=== PATIENT | female | born 1945 | race Caucasian/White ===

== ENCOUNTER 2020-02-13 10:29 | Outpatient (CLI) | payer MEDICARE, OTHER, SELFPAY ==
--- NOTE | ~2020-02-13 | MM_ITS ---
EXAMINATION: MM screening woody BI w dexter HISTORY: Screening TECHNIQUE: Craniocaudal and mediolateral oblique 3-D tomosynthesis images were obtained and synthetic 2-D images were generated. CAD analysis was submitted and interpreted. COMPARISON: Comparison to multiple prior studies sequentially, with oldest reviewed study dated 08/2010. BREAST PARENCHYMAL COMPOSITION: There are scattered areas of fibroglandular density. FINDINGS: There is no evidence of suspicious mass, calcification, or architectural distortion to sugg est malignancy in either breast. There has been no suspicious interval change. IMPRESSION: 1. No mammographic evidence of malignancy. 2. Recommend routine screening mammography in one year. BI-RADS Category 1: Negative Reviewed, dictated and finalized at location A.
--- NOTE | ~2020-02-13 | DEXA_ITS ---
BMD(1) Young-Adult(2) Age-Matched(3) Region (g/cm2) T-score Z-score WHO Classification L1 0.900 -2.0 0.2 Osteopenia L2 0.968 -2.0 0.1 Osteopenia L3 1.057 -1.3 0.9 Osteopenia L4 0.907 -2.4 -0.3 Osteopenia L1-L4 0.956 -1.9 0.2 Osteopenia Trend: L1-L4 Change vs Change vs Measured Age BMD(1) Baseline Previous Date (years) (g/cm2) (%) (%) 02/13/2020 [age] 0.956 -6.5* -6.5* [birth year]2009 [age] 1.023 baseline - * - Indicates significant change based on 95% confidence interval. 1 - Statistically 68% of repeat scans fall within 1SD (+- 0.010 g/cm2 for AP Spine L1-L4) 2 - [facility] (Combined NHANES (ages 20-30) / [place] (ages 20-40)) AP Spine Reference Population (v112) 3 - Matched for Age, Weight (females 25-100 kg), Ethnic 11 - World Health Organization - Definition of Osteoporosis and Osteopenia for Women: Normal = T-score at or above -1.0 SD; Osteopenia = T-score between -1.0 and -2.5 SD; Osteoporosis = T-score at or below -2.5 SD; (WHO definitions only apply when a young healthy Women reference database is used to determine T-scores.) Printed: 02/13/2020 11:40:19 AM (13.60)76:3.00:50.00:12.0 0.00:7.92 0.60x1.05 16.7:%Fat=18.0% 0.00:0.00 0.00:0.00 Verify bone is centered and there is sufficient tissue next to bone. Filename: 38rweqafq.dfx Scan Mode: Standard;OneScan 37.0 [employer]media [id number] BMD(1) Young-Adult(2) Age-Matched(3) Region (g/cm2) T-score Z-score WHO Classification Neck 0.587 -3.2 -1.0 Osteoporosis Total 0.660 -2.8 -0.7 Osteoporosis Hip Bogard Length Comparison (mm) (Left = 96.1 mm) (Mean = 104.0 mm) Trend: Total Change vs Change vs Measured Age BMD(1) Baseline Previous Date (years) (g/cm2) (%) (%) 02/13/2020 74.7 0.660 -22.4* -22.4* [birth year]/2009 [age] 0.851 baseline - * - Indicates significant change based on 95% confidence interval. 1 - Statistically 68% of repeat scans fall within 1SD (+- 0.012 g/cm2 for Left Femur Total) 2 - [place] (Combined NHANES (ages 20-30) / [place] (ages 20-40)) Femur Reference Population (v112) 3 - Matched for Age, Weight (females 25-100 kg), Ethnic 11 - World Health Organization - Definition of Osteoporosis and Osteopenia for Women: Normal = T-score at or above -1.0 SD; Osteopenia = T-score between -1.0 and -2.5 SD; Osteoporosis = T-score at or below -2.5 SD; (WHO definitions only apply when a young healthy Women reference database is used to determine T-scores.) Printed: 02/13/2020 11:40:19 AM (13.60)76:3.00:50.00:12.0 0.00:10.26 0.60x1.05 14.9:%Fat=38.8% 0.00:0.00 0.00:0.00 Neck Angle (deg)= 63 Filename: 38rweqafq.dfx Scan Mode: Standard 37.0 [employer]5media [id number] 17 - The 10-year probability of fracture may be lower than reported if the patient has received treatment. 18 - Major Osteoporotic Fracture: Clinical Spine, Forearm, Hip or Shoulder Printed: 02/13/2020 11:40:21 AM (13.60)76:3.00:50.00:12.0 0.00:10.26 0.60x1.05 14.9:%Fat=38.8% 0.00:0.00 0.00:0.00 Neck Angle (deg)= 63 Filename: [id number].dfx Scan Mode: Standard 37.0 ?Gy FRAX v3.1 [employer] [id number] Dear Ashleigh Vásquez MD, Your patient Violet Olivas completed a BMD test on 02/13/2020 using the [employer] DXA System (analysis version: 13.60) manufactured by [employer]. The following summarizes the results of our evaluation. PATIENT BIOGRAPHICAL: Name: Violet Olivas
[2020-02-13 10:47] LABS: Basophils Absolute Auto 0.03 K/mm3 (0.00-0.10); Basophils Percent Auto 0.5 % (0.0-1.0); Eosinophils Absolute Auto 0.11 K/mm3 (0.02-0.50); Eosinophils Percent Auto 1.7 % (1.0-6.0); Immature Granulocyte Absolute 0.02 K/mm3 (0.00-0.00); Immature Granulocyte Percent A 0.3 % (0.0-0.0); Lymphocytes Absolute Auto 1.47 K/mm3 (1.10-4.50); Lymphocytes Percent Auto 22.3 % (18.0-42.0); Mean Corpuscular HGB Conc 31.6 g/dL (32.0-36.0); Mean Corpuscular Volume 104.4 fL (78.0-102.0); Mean Platelet Volume 8.6 fl (9.2-11.8); Monocytes Absolute Auto 0.31 K/mm3 (0.10-0.90); Monocytes Percent Auto 4.7 % (2.0-11.0); Neutrophils Absolute Auto 4.7 K/mm3 (1.7-7.2); Neutrophils Percent Auto 70.5 % (50.0-70.0); Platelet Count Result 221 K/mm3 (150-420); Red Blood Count 3.64 M/mm3 (4.20-5.40); Red Cell Distribution Width 12.5 % (11.6-14.4); White Blood Count 6.6 K/mm3 (4.8-10.8)
[2020-02-13 10:52] LABS: Add Urine Microscopic? YES; Appearance Urine Clear (Clear); Bilirubin Urine Negative (Negative); Blood Urine Negative (Negative); Color Urine Yellow (Yellow); Glucose Urine UA Negative (Negative); Ketones Urine Negative (Negative); Leukocyte Esterase Ur Negative (Negative); Nitrate Urine Negative (Negative); Protein Urine Trace (Negative); Specific Grav Ur 1.025 (1.010-1.020); Urobilinogen Urine 0.2 mg/dL (0.2-1.0)
[2020-02-13 10:58] LABS: Bacteria Urine 1+ /hpf; RBC Urine 0-2 /hpf (0-2); Squamous Epithelial Cell Urine Few /hpf (Few); WBC Urine 0-3 /hpf (0-3)
[2020-02-13 10:59] LABS: Mucus Urine Few /lpf
[2020-02-13 12:13] LABS: Alanine Aminotransferase 18 U/L (14-59); Albumin Level 3.8 g/dL (3.4-5.0); Alkaline Phosphatase 66 U/L (46-116); Anion Gap 7 mmol/L (8-16); Aspartate Amino Transferase 42 U/L (15-37); Bilirubin,Total 0.4 mg/dL (0.00-1.00); Blood Urea Nitrogen 16 mg/dL (7-18); Calcium 9.3 mg/dL (8.5-10.1); Carbon Dioxide 31 mmol/L (21-32); Chloride 100 mmol/L (98-108); Estimated Glomerular Filt Rate 48; Glucose 98 mg/dL (70-99); Osmolality Calculated 287 mOsm/kg (285-295); Potassium 4.3 mmol/L (3.5-5.1); Sodium 138 mmol/L (136-145); Total Protein 7.3 g/dL (6.4-8.2)
[2020-02-13 12:14] LABS: Vitamin B12 > 2000 pg/mL (193-986)
[2020-02-15 11:14] LABS: Vitamin D 25 Hydroxy 33 ng/mL (30-100)
== END 2020-02-13 10:30 | disposition home or self-care (01) ==
PROVIDERS: PCP Internal Medicine; Referring Provider Internal Medicine; Visit Provider Internal Medicine
DX: Z12.31 Encounter for screening mammogram for malignant neoplasm of breast (principal); M81.0 Age-related osteoporosis without current pathological fracture; E53.8 Deficiency of other specified B group vitamins; I10 Essential (primary) hypertension; M06.9 Rheumatoid arthritis, unspecified
CPT/HCPCS: 36415; 77063; 77067; 77080; 80053; 81001; 82306; 82607; 85025

== ENCOUNTER 2020-06-13 15:04 | Outpatient (CLI) | payer MEDICARE, OTHER, SELFPAY ==
--- NOTE | ~2020-06-13 | XR_ITS ---
XR chest 2V DATE: 06/13/2020 15:26 INDICATION: Abnormal chest radiograph follow up, possible nodule TECHNIQUE: 2 views COMPARISON: None FINDINGS: Heart size is within normal range. There is aortic calcification and unfolding. No hilar or mediastinal enlargement. The lungs are hyperinflated but clear of infiltrate or consolidation. There is old pulmonary granulo matous disease. There is diffuse osteopenia. There is moderately severe compression fracture deformity of approximat marisa T12 Surgical clips are noted overlying the right upper quadrant. IMPRESSION: Bilateral hyperinflation; no active pulmonary disease Reviewed, dictated and finalized at location A. TEGIC MARKETING MANAGER
[2020-06-13 15:27] LABS: Basophils Absolute Auto 0.03 K/mm3 (0.00-0.10); Basophils Percent Auto 0.5 % (0.0-1.0); Eosinophils Absolute Auto 0.02 K/mm3 (0.02-0.50); Eosinophils Percent Auto 0.3 % (1.0-6.0); Hematocrit 37.2 % (35.0-42.0); Hemoglobin 11.5 g/dL (11.7-13.8); Immature Granulocyte Absolute 0.02 K/mm3 (0.00-0.00); Immature Granulocyte Percent A 0.3 % (0.0-0.0); Lymphocytes Absolute Auto 1.35 K/mm3 (1.10-4.50); Lymphocytes Percent Auto 21.2 % (18.0-42.0); Mean Corpuscular HGB Conc 30.9 g/dL (32.0-36.0); Mean Corpuscular Hemoglobin 32.2 pg (27.0-31.0); Mean Corpuscular Volume 104.2 fL (78.0-102.0); Mean Platelet Volume 8.4 fl (9.2-11.8); Monocytes Absolute Auto 0.17 K/mm3 (0.10-0.90); Monocytes Percent Auto 2.7 % (2.0-11.0); Neutrophils Absolute Auto 4.8 K/mm3 (1.7-7.2); Platelet Count Result 291 K/mm3 (150-420); Red Blood Count 3.57 M/mm3 (4.20-5.40); Red Cell Distribution Width 12.4 % (11.6-14.4); White Blood Count 6.4 K/mm3 (4.8-10.8)
[2020-06-13 15:54] LABS: Alanine Aminotransferase 17 U/L (14-59); Albumin Level 3.8 g/dL (3.4-5.0); Alkaline Phosphatase 77 U/L (46-116); Anion Gap 10 mmol/L (8-16); Aspartate Amino Transferase 36 U/L (15-37); Bilirubin,Total 0.4 mg/dL (0.00-1.00); Blood Urea Nitrogen 28 mg/dL (7-18); Calcium 9.4 mg/dL (8.5-10.1); Carbon Dioxide 28 mmol/L (21-32); Chloride 100 mmol/L (98-108); Estimated Glomerular Filt Rate 34; Glucose 94 mg/dL (70-99); Osmolality Calculated 291 mOsm/kg (285-295); Potassium 4.5 mmol/L (3.5-5.1); Sodium 138 mmol/L (136-145); Total Protein 7.4 g/dL (6.4-8.2)
== END 2020-06-13 15:05 | disposition home or self-care (01) ==
LOC: CHSLAB 15:07
PROVIDERS: PCP Internal Medicine; Visit Provider Internal Medicine
DX: M06.9 Rheumatoid arthritis, unspecified (principal); R91.8 Other nonspecific abnormal finding of lung field
CPT/HCPCS: 36415; 71046; 80053; 85025

== ENCOUNTER 2020-06-26 11:13 | Outpatient (CLI) | payer MEDICARE, OTHER, SELFPAY ==
--- NOTE | ~2020-06-26 | US_ITS ---
EXAMINATION: US venous doppler LE EXAM DATE: 06/26/2020 11:43 INDICATION: B/L Calf Swelling . TECHNIQUE: Multiple grayscale, color flow and Doppler images of the lower extremity deep venous syste ms bilaterally were obtained and reviewed. There is no prior study for comparison. FINDINGS: Right side: The right common femoral, femoral and profunda veins demonstrate normal color flow, respi ratory variation, augmentation and compressibility. Compressibility, color flow confirmed within the right popliteal, posterior tibial, peroneal, and greater saphenous veins. Left side: The left common femoral, femoral and profunda veins demonstrate normal color flow, respira tory variation, augmentation and compressibility. Compressibility, color flow confirmed within the l eft popliteal, posterior tibial, peroneal, and greater saphenous veins. IMPRESSION: 1. No lower extremity deep venous thrombosis bilaterally. Reviewed, dictated and finalized at location B. MACHINE OPERATOR
== END 2020-06-26 11:14 | disposition home or self-care (01) ==
LOC: CHSIMG 11:15
PROVIDERS: PCP Internal Medicine; Visit Provider Internal Medicine
DX: M79.89 Other specified soft tissue disorders (principal)
CPT/HCPCS: 93970

== ENCOUNTER 2020-09-28 07:50 | Emergency (ER) | payer MEDICARE, OTHER, SELFPAY ==
[2020-09-28] VITALS (16 sets, daily range): BP systolic 90–137; BP diastolic 52–89; PULSE 82–157; RESP 18–20; TEMP 36.1–37; O2SAT 94–100
--- NOTE | ~2020-09-28 | XR_ITS ---
EXAMINATION: XR abdomen NG/feed tube insert INDICATION: Nasogastric tube placement TECHNIQUE: Portable AP KUB-NG at 0836 hours COMPARISON: None available FINDINGS: The nasogastric tube is followed as far as the stomach. Its tip is beyond the inferior christa in of the radiograph. The visualized lung bases are clear. Surgical clips in the right upper quadrant are likely from prior cholecystectomy. IMPRESSION: 1. Nasogastric tube in the stomach. Reviewed, dictated and finalized at location A.
--- NOTE | ~2020-09-28 | CT_ITS ---
EXAMINATION: CT abdomen pelvis w con INDICATION: Hematemesis TECHNIQUE: Computed tomographic images of the abdomen and pelvis were obtained after the administrati on of 100 cc of Omnipaque 350 intravenous contrast. The dose-length product (DLP) was 395.06 mGy-cm. Automated exposure control and iterative reconstruction technique were employed. COMPARISON: None available FINDINGS: There are small pleural effusions, right greater than left. Cardiomegaly is noted. There is calcified coronary artery atherosclerosis. The nasogastric tube is in the stomach. Punctate calcific ations in an otherwise normal spleen likely represent healed granulomatous disease. The liver, pancre as, and right adrenal gland are normal. There is a 3.2 x 1.9 cm mass abutting the left adrenal gland. There is mild atrophy of the kidneys which contain multiple cysts. The largest measures 4 cm on the right. There is calcified atherosclerosis of the aorta and many of the other arteries. No pathologica lly enlarged abdominal or pelvic lymph nodes are identified. There is no free intraperitoneal gas or evidence of bowel obstruction. Changes of right total hip arthroplasty are noted. There is an age-ind eterminate burst fracture of L1. IMPRESSION: 1. No CT correlate for the patient's symptoms. 2. Small pleural effusions, right greater than left. 3. Mass abutting the left adrenal gland which could reflect adrenal mass versus diverticulum of the s tomach. Follow-up by MRI without and with contrast is recommended. 4. Cardiomegaly. Reviewed, dictated and finalized at location A. IMPRESSION: 1. No CT correlate for the patient's symptoms. 2. Small pleural effusions, right greater than left. 3. Mass abutting the left adrenal gland which could reflect adrenal mass versus diverticulum of the stomach. Follow-up by MRI without and with contrast is rec ommended. 4. Cardiomegaly.
[2020-09-28] MEDS: ONDANSETRON INJ 4 MG/2 ML VIAL IV PUSH (08:05)
--- NOTE | 2020-09-28 08:10 | ECG_ITS ---
Measurements Intervals [place] Rate: 136 P: [place]: 0 QRS: 4 QRSD: 77 T: 145 QT: 264 QTc: 398 Interpretive Statements ATRIAL FIBRILLATION WITH RAPID VENTRICULAR RESPONSE VENTRICULAR PREMATURE COMPLEX NONSPECIFIC T-WAVE ABNORMALITY- DIFFUSE LEADS ABNORMAL ECG Electronically Signed On 09-29-2020 16:35:15 CDT by Tal Hein D.O.
[2020-09-28] MEDS: SODIUM CHLORIDE 0.9% IV 1,000 ML 999 ML IV CONT (08:30)
[2020-09-28] MEDS: SODIUM CHLORIDE 0.9% IV 100 ML 10 ML (08:35)
[2020-09-28] MEDS: PANTOPRAZOLE SODIUM IV 40 MG VIAL 80 MG (08:35)
[2020-09-28 08:40] LABS: Hemoglobin 7.5 g/dL (11.7-13.8); Immature Granulocyte Absolute 0.02 K/mm3 (0.00-0.00); Immature Granulocyte Percent A 0.5 % (0.0-0.0); Immature Platelet Fraction Pct 7.1 % (1.0-7.0); Lymphocytes Absolute Auto 0.43 K/mm3 (1.10-4.50); Lymphocytes Percent Auto 10.4 % (18.0-42.0); Mean Corpuscular HGB Conc 32.6 g/dL (32.0-36.0); Mean Corpuscular Hemoglobin 36.2 pg (27.0-31.0); Mean Corpuscular Volume 111.1 fL (78.0-102.0); Monocytes Absolute Auto 0.03 K/mm3 (0.10-0.90); Monocytes Percent Auto 0.7 % (2.0-11.0); Neutrophils Absolute Auto 3.6 K/mm3 (1.7-7.2); Neutrophils Percent Auto 88.4 % (50.0-70.0); Nucleated Red Blood Cells Absolute Auto 0.07 K/mm3 (0.00-0.00); Nucleated Red Blood Cells Perc 1.7 % (0-0.0); Red Blood Count 2.07 M/mm3 (4.20-5.40); Red Cell Distribution Width 18.3 % (11.6-14.4); White Blood Count 4.1 K/mm3 (4.8-10.8)
[2020-09-28 08:44] LABS: Platelet Count Result 12 K/mm3 (150-420)
[2020-09-28 08:51] LABS: INR 1.2; Partial Thromboplastin Time 25.1 SEC (23.90-30.70); Prothrombin Time 12.7 Seconds (9.50-12.10)
[2020-09-28 08:54] LABS: BNP 741 pg/mL (0-100)
[2020-09-28 08:56] LABS: Lactic Acid Reflex 1.6 mmol/L (0.4-2.0)
[2020-09-28 09:00] LABS: SARS-CoV-2 Ag Negative (Negative)
[2020-09-28 09:03] LABS: Alanine Aminotransferase 59 U/L (14-59); Alkaline Phosphatase 69 U/L (46-116); Anion Gap 8 mmol/L (8-16); Aspartate Amino Transferase 76 U/L (15-37); Bilirubin,Total 1.1 mg/dL (0.00-1.00); Blood Urea Nitrogen 42 mg/dL (7-18); Calcium 8.8 mg/dL (8.5-10.1); Carbon Dioxide 30 mmol/L (21-32); Chloride 100 mmol/L (98-108); Estimated Glomerular Filt Rate 47; Glucose 186 mg/dL (70-99); Lipase 125 U/L (73-393); Magnesium 1.5 mg/dL (1.8-2.4); Osmolality Calculated 301 mOsm/kg (285-295); Potassium 4.3 mmol/L (3.5-5.1); Sodium 138 mmol/L (136-145); Total Protein 6.3 g/dL (6.4-8.2)
[2020-09-28 09:04] LABS: Ammonia < 10 umol/L (11-32)
[2020-09-28 09:20] LABS: Troponin I 93.1 ng/L (0.00-60.4)
--- NOTE | 2020-09-28 09:34 | ED.GIBLEED ---
HPI - GI Bleed General Chief complaint: GI Bleed Stated complaint: decreased appetite, vomiting, dizziness Source: patient, family and EMS Mode of arrival: EMS Limitations: clinical condition History of Present Illness HPI Narrative: this is a 75-year-old female that presented to the emergency department via EMS after she had nausea and vomiting off and on the last month but overnight had developed coffee-ground emesis, patient brought by EMS and the patient had nausea and vomiting with coffee-ground emesis, the patient had a rapid heart rate and no known history of atrial fibrillation but currently shows that she is in atrial fibrillation with rapid ventricular response initially her her heart rate was around 157, the patient denies any chest pain with no shortness of breath does have some mild abdominal discomfort with nausea vomiting with no dysuria no flank pain no chest tightness no shortness of breath no cough or congestion. The patient has a history of rheumatoid arthritis, hypertension and depression last saw her doctor approximately a month ago. Denies any [id number] medications, no NSAID use no alcohol use. Patient a blood pressure initially 137/76 is afebrile with a temperature of 97.2 and O2 sats at 96% on room air. After calling [facility] they declined to take the patient because of low platelet count, talk to [facility] and talk to client services specialist that would accept, talk to hospitalist and talked to the traffic rate computer and they are tight on beds at this time but will transfuse 2units of platelets prior to transfer. complaint: coffee ground emesis Onset (ago): hour(s) Pain Consistency: constant Severity: severe Relieving factors: vomiting Exacerbating factors: vomiting Associated symptoms: abdominal pain, nausea and vomiting Related Data Home Medications Medication Instructions Recorded Confirmed folic acid 1 mg PO DAILY 09/28/20 09/28/20 losartan 100 mg PO DAILY 09/28/20 09/28/20 sertraline 100 mg PO DAILY 09/28/20 09/28/20 sulfamethoxazole-trimethoprim 1 tablet PO DAILY 09/28/20 09/28/20 Allergies Allergy/AdvReac Type Severity Reaction Status Date / Time Penicillins Allergy Unknown Verified 09/28/20 09:26 Review of Systems Review of Systems: All systems reviewed & are unremarkable except as noted in HPI and below PMFSH Past Medical History Medical History (Updated 09/28/20 @ 14:25 by Lyle Luis MD) Depression HTN (hypertension) Rheumatoid arthritis Course Course Emergency Course: reassessment of patient placed an NG tube and x-ray showed the NG tube placed in the stomach, and did have about 150 to 200 cc of dark coffee-ground emesis, patient had blood work that showed that her platelet count was 12 with an H&H of 7.5 in , the patient was typed and screened and will start transfusion with 1unit of packed red blood cells. The patient on EKG shows that there is a new onset atrial fibrillation with a rapid ventricular response with a rate initially of 157 currently it is 136, patient was started on Protonix drip, NG tube placed, patient given Cardizem bolus of 10 mg and will start a Cardizem drip. Patient appears comfortable no acute distress currently vital signs are stable heart rate currently prior to the Cardizem drip is 138. Patient started on IV fluids with normal saline and blood pressure currently 121/76. Vital Signs Vital signs: Vital Signs Temperature 36.1 C L 09/28/20 07:50 Pulse Rate 157 H 09/28/20 07:50 Respiratory Rate 20 09/28/20 07:50 Blood Pressure 137/76 09/28/20 07:50 Pulse Oximetry 94 09/28/20 07:50 Temperature 36.9 C 09/28/20 12:56 Pulse Rate 99 09/28/20 12:56 Respiratory Rate 18 09/28/20 12:56 Blood Pressure 116/81 09/28/20 12:56 Pulse Oximetry 98 09/28/20 12:56 MDM - GI Bleed Lab Data Result diagrams: 09/28/20 08:31 09/28/20 08:31 Labs: Lab Results 09/28/20 09/28/20 09/28/20 R
[2020-09-28] MEDS: dilTIAZem HCl INJ 25 MG/5 ML VIAL 10 MG IV PUSH (09:44)
[2020-09-28] MEDS: SODIUM CHLORIDE 0.9% IV 250 ML 30 ML IV CONT (10:02)
--- NOTE | 2020-09-28 10:24 | PC.NURSE ---
Pt. resting, pt. ans spouse want transfer to [facility]. Call placed to [facility] and spoke to Chevy. Will await call back from Hospitalist. Paperwork signed for transfer.
--- NOTE | 2020-09-28 10:48 | PC.NURSE ---
Call back from [facility] c refusal for transfer. Pt. wishes to try [facility]. Call placed.
--- NOTE | 2020-09-28 12:28 | PC.NURSE ---
Report given to CHUCKIE Mcconnell
--- NOTE | 2020-09-28 12:33 | PC.NURSE ---
pt resting per cot. alert and oriented. no complaints or concerns. denies pain at this time. awaiting call back from [facility]
--- NOTE | 2020-09-28 13:00 | PC.NURSE ---
dr parker speaking with [facility] at this time.
[2020-09-28 14:00] LABS: Hematocrit 28.3 % (35.0-42.0); Hemoglobin 8.9 g/dL (11.7-13.8)
--- NOTE | 2020-09-28 14:43 | PC.NURSE ---
unit #2 will be sent with pt to [facility].
--- NOTE | 2020-09-28 14:58 | PC.NURSE ---
blood continues to infuse, carizem continues, protonix continues to [facility] with pt. pt report to Gerald broadcast traffic coordinator. ng clamped. pt transferred to ems cot. alert and stable.
== END 2020-09-28 15:00 | disposition short-term general hospital (02) ==
PROVIDERS: Emergency Provider Emergency Medicine; PCP Internal Medicine
DX: K92.2 Gastrointestinal hemorrhage, unspecified (principal); I48.20 Chronic atrial fibrillation, unspecified; D69.6 Thrombocytopenia, unspecified; I10 Essential (primary) hypertension; M06.9 Rheumatoid arthritis, unspecified; Z20.822 Contact with and (suspected) exposure to COVID-19
CPT/HCPCS: 36415; 36430; 74177; 80053; 82140; 83605; 83690; 83735; 83880; 84484; 85014; 85018; 85025; 85055; 85610; 85730; 86850; 86900; 86901; 86920; 86923; 87426; 93005; 96361; 96365; 96366; 96368; 96375; 99285; 99291; C9113; C9803; J2405; J7030; J7050; J7060; P9016; Q9967

== ENCOUNTER 2020-10-20 08:43 | Emergency (ER) | payer MEDICARE, OTHER, SELFPAY ==
--- NOTE | ~2020-10-20 | CT_ITS ---
EXAMINATION: CT brain wo con DATE: 10/20/2020 10:24 INDICATION: Unresponsive episode TECHNIQUE: Computed tomography (CT) of the head was performed without intravenous contrast. Sagittal and coronal reconstructions were performed. The mA was adjusted according to patient size. Iterative reconstruction technique was employed. The dose-length product was 529.67 mGy-cm. COMPARISON: head CT dated 08/11/2014 FINDINGS: No acute intracranial hemorrhage, acute infarction or abnormal extra axial fluid collection. There is moderate scattered white matter hypoattenuation consistent with chronic small vessel ischemic diseas e. Interval progression of symmetric prominence of the sulci and ventricles consistent with moderate age-appropriate diffuse cerebral volume loss. No mass/mass effect. Changes of bilateral intraocular l ens replacement. The orbits, paranasal sinuses and mastoid air cells are normal. Indeterminate 1.8 x 1.3 x 0.8 cm right parietal scalp nodule. No underlying calvarial fracture, erosion or periosteal camryn ction. IMPRESSION: 1. No acute intracranial process. 2. Age-related changes including moderate diffuse volume loss and moderate scattered white matter hyp oattenuation consistent with chronic small vessel ischemic disease. 3. Indeterminate 1.8 x 1.3 x 0.8 cm right parietal scalp nodule. Reviewed, dictated and finalized at location A. IMPRESSION: 1. No acute intracranial process. 2. Age-related changes including moderate diffuse volume loss and moderate scat tered white matter hypoattenuation consistent with chronic small vessel ischemi c disease. 3. Indeterminate 1.8 x 1.3 x 0.8 cm right parietal scalp nodule.
[2020-10-20 08:39] VITALS: BP 91/74; PULSE 110; RESP 25; TEMP 36.5; O2SAT 68
--- NOTE | 2020-10-20 08:59 | ECG_ITS ---
Measurements Intervals [place] Rate: 105 P: [place]: 0 QRS: -7 QRSD: 90 T: 52 QT: 364 QTc: 481 Interpretive Statements ATRIAL FIBRILLATION WITH RAPID VENTRICULAR RESPONSE NONSPECIFIC ST & T-WAVE ABNORMALITY- HIGH LATERAL LEADS BASELINE ARTIFACT- I, II, III, AVR, AVL, AF, V2-V6 ABNORMAL ECG Electronically Signed On 10-20-2020 9:10:47 CDT by Tal Hein D.O.
--- NOTE | 2020-10-20 09:02 | ED.GENADULT ---
HPI - General Adult General Chief complaint: Altered Mental Status Stated complaint: ALT LOC Time Seen by Provider: 10/20/20 08:58 Source: EMS and RN notes reviewed Mode of arrival: EMS Limitations: clinical condition History of Present Illness HPI narrative: Patient 75 years old white female came by ambulance from longterm with unresponsiveness. jail staff went to the patient room this morning to wake her up and was unresponsive to verbal commands, responsive to painful stimulation. Patient baseline is oriented x1, history of dementia and DNR. Patient saturation on room air was low. On arrival to the emergency room patient is gasping for air, nasal cannula on. No significant other at the bedside Related Data Home Medications Medication Instructions Recorded Confirmed sertraline 100 mg PO DAILY 09/28/20 09/28/20 Lucille-Sequels (iron-dss) 10/20/20 apixaban [Eliquis] 5 mg PO BID 10/20/20 calcium [Calcium Oyster Shell] mg 10/20/20 cyanocobalamin (vitamin B-12) 1,000 mcg PO DAILY 10/20/20 diltiazem HCl 120 mg PO DAILY 10/20/20 folic acid 0.4 mg PO DAILY 10/20/20 furosemide 20 mg PO DAILY 10/20/20 pantoprazole 40 mg PO QAM 10/20/20 sennosides-docusate sodium [Senna 1 tab-cap PO HS 10/20/20 10/20/20 with Docusate Sodium] Allergies Allergy/AdvReac Type Severity Reaction Status Date / Time TOMMIE Inhibitors Allergy Unknown Verified 10/20/20 09:21 Beta-Blockers Allergy Unknown Verified 10/20/20 09:21 (Beta-Adrenergic Bloc codeine Allergy Unknown Verified 10/20/20 09:21 Penicillins Allergy Unknown Verified 09/28/20 09:26 tetracycline Allergy Unknown Verified 10/20/20 09:21 Review of Systems Review of Systems: ROS unobtainable: Yes unobtainable due to medical condition PMFSH Past Medical History Medical History Depression HTN (hypertension) Rheumatoid arthritis Social History Social History Gender identity (if verbalized by the patient): Female Exam Narrative: Exam Narrative: General appearance: Well-developed, malnourished, cachectic, gasping for air, responding to painful stimulation with morning. No family member at the bedside Skin: Scattered bruises Head: Normocephalic, nontraumatic Eyes: Clear conjunctiva Chest and respiratory: Airway patent, no respiratory distress, accessory muscle use Heart: Regular rate/rhythm Abdomen: Soft, nontender, no organomegaly, quiet bowel sounds Neurologic: Responding to painful stimulation, morning Course Course Emergency Course: Critical Reevaluation(s) Reevaluation #1: Patient's came to the emergency room within the last 10 minutes before the announcement of patient . Patient gasping for air gradually got worse, until she Date: 10/20/20 Time: 10:50 Vital Signs Vital signs: Vital Signs Temperature 36.5 C 10/20/20 08:39 Pulse Rate 110 H 10/20/20 08:39 Respiratory Rate 25 H 10/20/20 08:39 Blood Pressure 91/74 L 10/20/20 08:39 Pulse Oximetry 68 L 10/20/20 08:39 Temperature 36.5 C 10/20/20 08:39 Pulse Rate 105 H 10/20/20 09:44 Respiratory Rate 29 H 10/20/20 09:44 Blood Pressure 89/73 L 10/20/20 09:44 Pulse Oximetry 94 10/20/20 09:44 Medical Decision Making MDM Narrative Medical decision making narrative: Patient presents to the ED with unresponsiveness, hypoxia. Sepsis protocol ordered. Further plan to follow Differential Diagnosis Differential Diagnosis: Sepsis, pneumonia, pulmonary embolism, congestive heart failure Vital Signs Vital Signs: Vital Signs Temperature 36.5 C 10/20/20 08:39 Pu
--- NOTE | 2020-10-20 09:03 | PC.NURSE ---
Patient 68% on room air, placed on NRB at [address] Dubose
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
[2020-10-20 09:17] VITALS: BP 96/67; PULSE 108; RESP 28
[2020-10-20 09:31] VITALS: RESP 31
[2020-10-20 09:31] LABS: Alveolar/Arterial O2 Gradient 344.2 mmHg; Device NON-REBREATHER MASK; Fractional Inspired Oxygen 100 %; HCO3 ABG 19.5 mEq/l (22.0-26.0); Modified Allen's Test Pass; Oxygen Content ABG 13.1 %vol (16.0-22.0); Oxygen Saturation ABG 99.8 % (95.0-100.0); Oxyhemoglobin 98.4 % THb (90.0-100.0); PCO2 ABG 29.3 mmHg (35.0-45.0); PO2 ABG 339.5 mmHg (80.0-100.0); PO2 FiO2 Ratio Arterial Blood 3.39 %; Site Drawn LEFT RADIAL; Total Hemoglobin 8.8 g/dL (12.0-18.0)
[2020-10-20 09:44] VITALS: BP 89/73; PULSE 105; RESP 29; O2SAT 94
[2020-10-20 09:44] LABS: Add Urine Microscopic? YES; Appearance Urine Cloudy (Clear); Bacteria Urine 1+ /hpf; Bilirubin Urine Negative (Negative); Blood Urine 1+ (Negative); Color Urine Amber (Yellow); Glucose Urine UA Negative (Negative); Hyaline Casts Urine 20-29 /lpf; Ketones Urine Negative (Negative); Leukocyte Esterase Ur 2+ LEU/UL (Negative); Mucus Urine Rare /lpf; Nitrate Urine Negative (Negative); Protein Urine 2+ mg/dL (Negative); RBC Urine 0-2 /hpf (0-2); Specific Grav Ur 1.014 (1.001-1.035); Squamous Epithelial Cell Urine Rare /hpf (Few); WBC Clumps Urine Present /HPF; WBC Urine 31-50 /hpf
--- NOTE | 2020-10-20 09:45 | PC.NURSE ---
Patient notified via Mima hough RN with an update on patients condition. States will be into the ED to see her soon.
--- NOTE | 2020-10-20 10:04 | PC.NURSE ---
Attempted blood draw several times by several other nurses. Phlebotomy at bedside and able to get limited blood work. US attempted by RN in ED but unsuccessful for blood draw.
[2020-10-20 10:09] LABS: Basophils Absolute Auto 0.3 K/mm3 (0.0-0.1); Basophils Percent Auto 0.5 % (0.2-1.2); Hematocrit 25.2 % (37.0-47.0); Hemoglobin 7.7 g/dL (12.0-15.0); Immature Granulocyte Absolute 3.04 K/mm3 (0.00-0.031); Immature Granulocyte Percent A 4.2 % (0-0.5); Lymphocytes Absolute Auto 2.62 K/mm3 (0.9-3.2); Lymphocytes Percent Auto 3.6 % (18.3-44.2); Mean Corpuscular HGB Conc 30.6 g/dl (32-36); Mean Corpuscular Hemoglobin 34.5 pg (26-34); Mean Platelet Volume 10.6 fl (7.4-10.4); Monocytes Percent Auto 2.7 % (2.6-8.5); Neutrophils Absolute Auto 64.1 K/mm3 (1.3-6.7); Nucleated Red Blood Cells Absolute Auto 0.4 K/mm3 (0.0-0.012); Nucleated Red Blood Cells Perc 0.6 % (0.0-0.2); Platelet Count Result 265 k/mm3 (150-375); Red Blood Count 2.23 M/mm3 (4.2-5.4); Red Cell Distribution Width 23.9 % (11.5-14.5)
[2020-10-20 10:19] LABS: Partial Thromboplastin Time 38.4 SECONDS (22.3-36.8); Prothrombin Time 73.1 Seconds (11.1-14.7)
[2020-10-20 10:24] LABS: INR 9.1
[2020-10-20 10:28] LABS: Alanine Aminotransferase 30 U/L (4-35); Alkaline Phosphatase 147 U/L (38-126); Anion Gap 22 mmol/L (8-16); Aspartate Amino Transferase 85 U/L (14-36); Bilirubin,Total 2.6 mg/dL (0.2-1.3); Blood Urea Nitrogen 104 mg/dL (7-17); CRP 7.3 mg/dL (<1.0); Calcium 8.5 mg/dL (8.4-10.2); Carbon Dioxide 28 mmol/L (22-30); Chloride 91 mmol/L (98-107); Estimated CRCL calculation 14 ml/min; Estimated Glomerular Filt Rate 21; Glucose 134 mg/dL (65-105); Potassium 3.3 mmol/L (3.4-5.0); Sodium 141 mmol/L (137-145)
--- NOTE | 2020-10-20 10:33 | PC.NURSE ---
To patients room at this time, noted no lung sounds or heart sounds currently asystole on monitor. Dr. Dubose at bedside. Per families wishes patient is a DNR and comfort measures only. Time of per Dr. Dubose [id number].
[2020-10-20 10:38] LABS: White Blood Count 72.1 K/mm3 (4.5-10.0)
[2020-10-20 10:39] LABS: Anisocytosis 2+ (NORMAL); Microcytosis 2+ (NORMAL); Platelet Estimate Adequate (Adequate); Polychromasia 1+ (NORMAL)
== END 2020-10-20 11:52 | disposition expired ==
PROVIDERS: Emergency Provider Emergency Medicine; PCP Internal Medicine
DX: N17.9 Acute kidney failure, unspecified (principal); J96.01 Acute respiratory failure with hypoxia; R79.1 Abnormal coagulation profile; D72.829 Elevated white blood cell count, unspecified; D64.9 Anemia, unspecified; N39.0 Urinary tract infection, site not specified; F03.90 Unspecified dementia, unspecified severity, without behavioral disturbance, psychotic disturbance, mood disturbance, and anxiety; M06.9 Rheumatoid arthritis, unspecified; Z79.01 Long term (current) use of anticoagulants; F32.9 Major depressive disorder, single episode, unspecified; I10 Essential (primary) hypertension; I48.91 Unspecified atrial fibrillation; R94.31 Abnormal electrocardiogram [ECG] [EKG]; Z66 Do not resuscitate
CPT/HCPCS: 36415; 36600; 51701; 70450; 80053; 81001; 82805; 85025; 85610; 85730; 86140; 87077; 87086; 87088; 87186; 93005; 99291